=== PATIENT | female | born 1985 | race Caucasian/White ===

== ENCOUNTER → 2017-02-04 | Outpatient (CLI) | payer MEDICAID ==
[2017-02-04 15:26] LABS: HEMOGLOBIN 13.2 g/dL (12.2-16.2); LYMPH % 21.3 % (10-50.0)
[2017-02-04 17:33] LABS: FREE THYROXIN INDEX 7.6 ug/dl (5.93-13.13)
[2017-02-04 17:52] LABS: ABO BLOOD TYPE A; RH BLOOD TYPE NEGATIVE
[2017-02-06 08:45] LABS: HIV Screen 4th Generation wRfx Non Reactive (Non Reactive); Rapid Plasma Reagin, Quant Non Reactive (NonRea<1:1); Rubella Antibodies, IgG 1.31 index (Immune >0.99)
[2017-02-06 12:36] LABS: HBsAg Screen Negative (Negative)
== END ==
LOC: LAB 14:47
PROVIDERS: Nurse Practitioner Obstetrics & Gynecology
DX: Z34.00 Encounter for supervision of normal first pregnancy, unspecified trimester (principal)
CPT/HCPCS: G0432